=== PATIENT | male | born 1950 | race Caucasian/White ===

== ENCOUNTER 2018-06-19 08:30 | Day surgery (SDC) | payer OTHER ==
[2018-06-19] MEDS ORDERED: MIDAZOLAM HCL 2 MG/2 ML INJ ONE (08:44)
[2018-06-19] MEDS ORDERED: PROPOFOL 200 MG/20 ML VIAL IV ONE (08:44)
[2018-06-19] MEDS ORDERED: LIDOCAINE 2% MPF 5 ML VIAL ONE (08:44)
[2018-06-19] MEDS ORDERED: FENTANYL CITR 100 MCG/2 ML ONE (08:44)
[2018-06-19 09:16] LABS: Absolute Monocytes 0.6 K/uL (0.1-1.3); Absolute Neutrophil 6.8 K/uL (1.8-8.0); Basophils % 0.6 % (0-1.3); Eosinophils % 0.3 % (0-4.4); Lymphocytes % 20.8 % (15.3-44.8); MCV 92.5 fL (80-100); MPV 8.2 fL (7.6-11.3); Monocytes % 6.2 % (3.3-12.3); RBC Red Blood Cell Count 4.97 M/uL (4.33-5.43)
[2018-06-19 09:17] LABS: Potassium 4.3 mmol/L (3.5-5.1)
--- NOTE | 2018-06-19 10:26 | EKG ---
Test Date: 2018-06-19 Test Time: 08:59:09 Hand Ii Thermal Cutter: HORTENCIA MEASUREMENT RESULTS: Intervals: Rate: 61 IL: 158 QRSD: 104 QT: 430 QTc: 432 [place]: P: 77 IL: 158 QRS: 92 T: 86 INTERPRETIVE STATEMENTS: Normal sinus rhythm Rightward axis Borderline ECG No previous ECG available for comparison Electronically Signed On 06-19-18 10:25:58 CDT by Ruben Burgess
--- NOTE | 2018-06-19 12:14 | RAD REPORT ---
EXAM DESCRIPTION: RAD - Chest Pa And Lat (2 Views) - 06/19/2018 9:29 am CLINICAL HISTORY: Preop for surgery Chest pain. COMPARISON: Chest Single View dated 07/11/2017; Chest Pa And Lat (2 Views) dated 04/05/2017 FINDINGS: Marked emphysematous changes are present. No focal infiltrate seen. Aortic atherosclerosis . The heart is normal in size. No displaced fractures. IMPRESSION: Advanced COPD.
--- NOTE | 2018-06-19 19:03 | OP ---
Date of Procedure: 06/19/2018 Surgeon: Kishor Smith MD Preoperative Diagnosis: Left shoulder ulcerated mass, approximately 2 cm in diameter. Postoperative Diagnosis: Left shoulder ulcerated mass, approximately 2 cm in diameter. Rule out can cer. Procedure Performed: Wide excision, left shoulder mass, 10 x 5 cm, with layered closure. Estimated Blood Loss: Minimal. Specimen: Left shoulder mass. Findings: As above. Margins free. Anesthesia: MAC. Complications: None. Disposition: The patient tolerated the procedure in stable condition, taken to Recovery in good gene ral condition. Procedure In Detail: The patient was brought to the OR and placed in the supine position, prepped an d draped in the usual sterile fashion. After MAC anesthesia begun then a 15-blade was used to make a pproximately a 10 x 5 cm incision around this 2.5 cm raised ulcerated mass in the left anterior shoul violette. Subcu tissue divided. Good skin margins obtained on both sides, and then the entire mass excis ed and labeled appropriately. Sent to Pathology for frozen section, which reveals it to be skin canc er, margins free. Subsequently, the wound was irrigated. Bleeding controlled with cautery. Flaps c reated, both superiorly inferiorly, and then 2-0 chromic used to approximate the deep subcutaneous ti ssue, and 3-0 chromic used to close the skin. Sterile dressing was applied. The patient was awakene d and taken to Recovery in good general condition. Discharge Note: The patient will go to Day Surgery and home when stable. Disposition: Home. Condition: Stable. Discharge Instructions: Resume home medications and diet. Activity as tolerated. No heavy lifting. Remove outer dressing in 2 days. Shower. Keep wound clean and dry. Keep Steri-Strips on at all t imes. Tylenol No. 3, one table p.o. q.4h. p.r.n. pain, Keflex 500 mg p.o. q.6h., and patient can sta rt his Plavix tomorrow. Follow up in my office in 1 week. Call for appointment. KAMRON/TAMMY Voice ID: [id number] Report ID: [id number]
== END 2018-06-19 11:30 | disposition home or self-care (01) ==
LOC: OR 08:30
PROVIDERS: ATTEND Surgery
PROC: 0HBCXZZ Excision of Left Upper Arm Skin, External Approach (ICD-10-PCS; principal; 2018-06-19 10:30)
DX: C44.629 Squamous cell carcinoma of skin of left upper limb, including shoulder (principal); I25.10 Atherosclerotic heart disease of native coronary artery without angina pectoris; J44.9 Chronic obstructive pulmonary disease, unspecified; Z72.0 Tobacco use
CPT/HCPCS: 11606; 36415; 71046; 80048; 85025; 88305; 88331; 88332; 93005; J2250; J3010

== ENCOUNTER → 2018-07-11 | Day surgery (SDC) | payer OTHER ==
[2018-07-04 15:32] LABS: Absolute Lymphocytes (CBC) 2.7 K/uL (0.7-4.9); Absolute Monocytes 0.7 K/uL (0.1-1.3); Absolute Neutrophil 5.5 K/uL (1.8-8.0); Basophils % 0.6 % (0-1.3); Eosinophils % 0.8 % (0-4.4); Hematocrit 48.2 % (39.6-49.0); MCH 31.5 pg (27.0-35.0); MCV 92.7 fL (80-100); MPV 8.7 fL (7.6-11.3); Monocytes % 7.9 % (3.3-12.3)
[2018-07-04 16:05] LABS: Protime INR 0.94
[~2018-07-11] MED LIST: ATROPINE SULF 1 MG/10 ML SYR IV ONE; FENTANYL CITR 100 MCG/2 ML ONE; HEPA 1000U/500MLS 1,000 UNIT/500 ML BAG IV ONE; LIDOCAINE 1% MPF 30 ML VIAL ONE; MIDAZOLAM HCL 2 MG/2 ML INJ ONE; NA CHLORIDE 0.9% 0 ML ONE; NA CHLORIDE 0.9% 500 ML ONE
--- NOTE | 2018-07-11 22:57 | OP ---
Surgeon: Sanya Quiñones MD Network Support: Lynette Marin. Admitted to my service as an outpatient to the heart laborer rags. Today he had a left heart catheteriza tion, selective coronary arteriogram, left ventriculogram. Indication: Coronary artery disease, abnormal stress test, congestive heart failure, ischemic cardio myopathy. The patient was given 2 mg of Versed for IV sedation, prepped and draped in the routine sterile fashi on. A 6-[place] sheath introduced in the right common femoral artery. A 6-[place] catheter was used t o do the diagnostic angiogram. He was found to have 100% RCA. He had normal LAD. He had moderate o stial diagonal disease, mild distal left main disease, mild plaquing in the circumflex. Ejection fra ction was about 30% to 35%. We will continue medical therapy. There were no complications. Blood Loss: 5 cc. Final Assessment: Coronary artery disease, ischemic myopathy. Plan: Plan for medical therapy. Consider Entresto. Consider AICD and biventricular pacemaker. Gray e today. See me in the office in 2 weeks. Total Conscious Sedation: 30 minutes. JEAN PIERRE/TAMMY Voice ID: [id number] Report ID: [id number]
== END ==
LOC: CCL 08:34
DX: I25.10 Atherosclerotic heart disease of native coronary artery without angina pectoris (principal); I25.82 Chronic total occlusion of coronary artery; I25.5 Ischemic cardiomyopathy; I50.9 Heart failure, unspecified; R00.0 Tachycardia, unspecified; E78.2 Mixed hyperlipidemia; J44.9 Chronic obstructive pulmonary disease, unspecified; F17.210 Nicotine dependence, cigarettes, uncomplicated; Z82.49 Family history of ischemic heart disease and other diseases of the circulatory system
CPT/HCPCS: 36415; 80048; 85025; 85610; 85730; 93458; C1760; C1893; J2250 ×2; J3010; J0583